=== PATIENT | female | born 1980 | race African-American/Black ===

== ENCOUNTER 2016-12-19 18:50 | Emergency (ER) | payer OTHER ==
[~2016-12-19] VITALS: Ht 157.5 cm; Wt 58.5 kg
--- NOTE | 2016-12-19 20:16 | RADIOLOGY REPORT ---
EXAMINATION: Right fourth finger. CLINICAL INFORMATION: [place]-neck deformity of the finger. COMPARISON: None TECHNIQUE: Three views of the right fourth finger. FINDINGS: DIP joint is hyperflexed. No fracture dislocation. No focal bone lesion. IMPRESSION: Hyperflexed DIP joint of the ring finger. No fracture or dislocation.
--- NOTE | 2016-12-19 20:55 | ED HAND/WRIST INJURY COMPLAINT ---
History of Present Illness General Chief Complaint: Hand or Wrist Injury Stated Complaint: LAC TO RIGHT RING FINGER Source: patient Exam Limitations: no limitations Vital Signs & Intake/Output Vital Signs & Intake/Output Vital Signs Date Time Temp Pulse Resp B/P Pulse O2 O2 Flow FiO2 Ox Delivery Rate 12/19 2126 95.6 68 18 110/68 97 Room Air 12/19 2109 97 Room Air 12/19 1907 99.9 82 18 113/71 98 Room Air Allergies Coded Allergies: NO KNOWN ALLERGIES (01/07/12) Reconcile Medications Ibuprofen 800 MG TABLET 1 TAB PO Q8 PRN PAIN Tramadol HCl 50 MG TABLET 1 TAB PO Q6 PRN pain Triage Note: PT STATES THAT SHE WAS REMOVING A MIRROR OFF THE WALL WHEN IT FELL AND HIT HER FINGER , PT STATES THAT SHE IS UNABLE TO STRAIGHTEN HER FINGER OUT Triage Nurses Notes Reviewed? yes : No Patient currently breastfeeds: No HPI: Patient is a 36-year-old female presents complaining of laceration to her right ring finger and difficulty moving the distal phalanx of her right ring finger. Patient reports she was moving a large mirror when the mirror came down and struck the dorsal surface of her finger. Injury occurred a couple of hours ago. Pain is mild at rest, worsens with movement and palpation. Patient is right- hand dominant. Patient denies numbness. Last tetanus shot was in 2014 (CORBIN MCLEAN) Past History Travel History Traveled to [place] past 21 day No Medical History Any Pertinent Medical History? 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 No (CORBIN MCLEAN) Review of Systems Review of Systems Constitutional: Reports: no symptoms. Musculoskeletal: Reports: see HPI. Skin: Reports: see HPI. Neurological/Psychological: Denies: numbness, paresthesia. Hematologic/Endocrine: Reports: bleeding (FROM WOUND). Immunologic/Allergic: Denies: splenectomy. (CORBIN MCLEAN) Physical Exam Physical Exam General Appearance: well developed/nourished, alert, awake Head: atraumatic, normal appearance Eyes: Bilateral: normal appearance. Neck: normal inspection, full range of motion Cardiovascular/Respiratory: no respiratory distress Back: normal inspection, normal range of motion Hand Left: normal inspection, normal range of motion Hand Right: 2.5 cm crescent-shaped flap laceration over the PIP joint, dorsal surface of the right ring finger. Right ring finger distal phalanx in slight extension at rest. Patient with difficulty flexing the distal phalanx. When the DIP is isolated patient was able to fully flex the distal phalanx Neurologic/Tendon: tendon function deficit Skin: warm/dry (CORBIN MCLEAN) Progress Differential Diagnosis: fracture, sprain, TENDON LACERATION, FOREIGN BODY Plan of Care: Current Medications Sig/Terrell Start time Last Medication Dose Stop Time Status Admin Lidocaine 20 ML ONCE ONE 12/19 2099 UNVr (Lidocaine 1%) 12/19 2100 Discussed results of x-ray with patient. Clinically patient has a partial tendon laceration of the flexor tendon. Discussed the importance of hand surgeon follow-up. Wound sutured. Patient placed in finger splint with slight flexion of the DIP by nurse. (CORBIN MCLEAN) Departure Departure Time of Disposition: 2120 Disposition: HOME OR SELF CARE Condition: Stable Clinical Impression Primary Impression: Finger laceration involving tendon Qualifiers: Encounter type: initial encounter Qualified Codes: S61.219A - Laceration without foreign body of unspecified finger without damage to nail, initial encounter; S61.209A - Unspecified open wound of unspecified finger without damage to nail, initial encounter Referrals: PATIENT HAS NO PRIMARY CARE DR (PCP/Family) ROBERT HANNA,FRANK Nair Additional Instructions: Wear the splint with the end of your finger slightly flexed. Follow-up with Dr. Waters(hand surgeon) within 1 week for further evaluation. Call in the morning for appointment. Return to the emergency department if pus from the wound, redness spreading from the wound, fevers, or worsening of symptoms. Departure Forms: Customer Survey General Discharge Information Prescriptions: Current Visit Scripts Ibuprofen 1 TAB PO Q8 PRN PAIN #20 TAB Tramadol HCl 1 TAB PO Q6 PRN pain #15 TAB (CORBIN MCLEAN) PA/PARALEGAL SUPERVISOR Co-Sign Statement Statement: ED Attending supervision documentation- [] I saw and evaluated the patient. I have also reviewed all the pertinent lab results and diagnostic results. I agree with the findings and the plan of care as documented in the PA's/PARALEGAL SUPERVISOR's documentation. [X] I have reviewed the ED Record and agree with the PA's/PARALEGAL SUPERVISOR's documentation. [] Additions or exceptions (if any) to the PAs/PARALEGAL SUPERVISOR's note and plan are summarized below: [] (TATO HANNA,GINO Yanez) Procedures Laceration/Wound Repair Laceration/Wound Repair: Wound Location: right ring finger Wound Length (cm): 2.5 Wound Explored: clean Irrigated w/ Saline (ccs): 400 Betadine Prep? Yes Anesthesia: 1% lidocaine Volume Anesthetic (ccs): 4 Wound Repaired With: sutures Suture Size/Type: 5:0, nylon Number of Sutures: 5 Splint Applied? Yes By Who? by nurse Type of Splint Applied: finger splint with DIP in slight flexion (BROOKE LAST,CORBIN)
[2016-12-19] MEDS ORDERED: IBUPROFEN800 M1 PO (21:22)
[2016-12-19] MEDS ORDERED: TRAMADOL HCL50 M1 PO (21:22)
[2016-12-19 21:27] VITALS: BP 110/68
== END 2016-12-19 21:28 ==
LOC: ERH 18:50
DX: S61.214A Laceration without foreign body of right ring finger without damage to nail, initial encounter (principal); S56.123A Laceration of flexor muscle, fascia and tendon of right middle finger at forearm level, initial encounter; W25.XXXA Contact with sharp glass, initial encounter
CPT/HCPCS: 73140-RT

== ENCOUNTER 2016-12-29 12:01 | Emergency (ER) | payer OTHER ==
[~2016-12-29] VITALS: Ht 157.5 cm; Wt 58.1 kg
[~2016-12-29 12:01] MED LIST: IBUPROFEN800 M1 PO; TRAMADOL HCL50 M1 PO
[2016-12-29 12:04] VITALS: BP 107/74
--- NOTE | 2016-12-29 12:22 | ED HAND/WRIST INJURY COMPLAINT ---
History of Present Illness General Chief Complaint: Suture Removal/Wound Recheck Stated Complaint: REMOVAL OF SUTURES RIGHT HAND RING FINGER Source: patient Exam Limitations: no limitations Vital Signs & Intake/Output Vital Signs & Intake/Output Vital Signs Date Time Temp Pulse Resp B/P Pulse O2 O2 Flow FiO2 Ox Delivery Rate 12/29 1204 99.1 74 20 107/74 97 Room Air ED Intake and Output 12/30 0000 12/29 1200 Intake Total Output Total Balance Patient 128 lb Weight Allergies Coded Allergies: NO KNOWN ALLERGIES (01/07/12) Reconcile Medications Ibuprofen 800 MG TABLET 1 TAB PO Q8 PRN PAIN Tramadol HCl 50 MG TABLET 1 TAB PO Q6 PRN pain Triage Note: HERE FOR SUTURE REMOVAL RIGHT RING FINGER Triage Nurses Notes Reviewed? yes Occurred: 12/19/16 Duration: day(s): (10) Injury Environment: home Severity: moderate Severity Numbers: 5 Pain/Injury Location: Right: 4th finger. Context: laceration Method of Injury: direct blow Modifying Factors: Worsens With: movement. : No Patient currently breastfeeds: No HPI: BRANDAN IS A 36 YO F W/ NO SIGNIFICANT PAST MEDICAL HISTORY PRESENTING TO ED FOR WOUND ASSESSMENT. PATIENT STATES SHE DROPPED A BATHROOM FIXTURE ONTO HER HAND IN THE PROCESS OF REPLACING IT. PT SUSTAINED LACERATION AND WAS SEEN HERE. LACERATION WAS REPAIRED AND THERE WAS CONCERN FOR TENDON LACERATION. PATIENT WAS REFERRED TO DR. JONES, HAND SURGEON (TO F/U IN 1 WK) BUT SHE STATES SHE JUST GOT A NEW JOB AND HAD JOB ORIENTATION, WHICH SHE WAS UNABLE TO MISS. PT HAS SCHEDULED APPT ON TUESDAY 01/02 IN AM. PT DENIES FEVER, CHILLS, WRIST PAIN, PAIN W/ PASSIVE FLEXSION OF FINGER. PT IS ABLE TO MAKE A FIST, BUT IS UNABLE TO FLEX HER DIP. PT IS CONCERNED ABOUT THE DEFORMITY OF DIP. (ELIZABETH HANNA,DELORIS) Past History Travel History Traveled to [place] past 21 day No Medical History Any Pertinent Medical History? 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 No (DELORIS JOHNSON MD) Review of Systems Review of Systems Constitutional: Reports: no symptoms. EENTM: Reports: no symptoms. Respiratory: Reports: no symptoms. Cardiovascular: Reports: no symptoms. GI: Reports: no symptoms. Genitourinary: Reports: no symptoms. Musculoskeletal: Reports: no symptoms, see HPI (ABNORMAL R RING FINGER MVMT). Skin: Reports: change in skin color (ABNORMAL LACERATION HEALING). Neurological/Psychological: Reports: no symptoms. Hematologic/Endocrine: Reports: no symptoms. Immunologic/Allergic: Reports: no symptoms. All Other Systems: Reviewed and Negative (DELORIS JOHNSON MD) Physical Exam Physical Exam General Appearance: well developed/nourished, no apparent distress, alert Head: atraumatic, normal appearance Eyes: Bilateral: normal appearance, PERRL, EOMI. Neck: normal inspection, supple, full range of motion Cardiovascular/Respiratory: normal breath sounds, normal peripheral pulses, regular rate/rhythm, no respiratory distress Back: normal range of motion Hand Left: normal inspection, normal range of motion Hand Right: deformity, lacerations, limited range of motion, evidence of injury, 4th finger Neurologic/Tendon: normal sensation, normal motor functions Skin: intact, normal color, warm/dry, HEALING LACERATION TO DORSAL R RING FINGER , ECCHYMOSIS TO VENTRAL R RING FINGER (DELORIS JOHNSON MD) Progress Differential Diagnosis: abscess, cellulitis, fracture Plan of Care: PATIENT IS WELL-APPEARING 36 YO F. RETURNING FOR SUTURE AND WOUND ASSESSMENT. PATIENT HAS NOT SEEN HAND SURGEON YET GIVEN RECENT JOB AND WAS UNABLE TO MISS HER ORIENTATION. 5 SUTURES REMOVED. NO OBVIOUS SIGNS OF INFECTION. FINGER ROM WITHOUT PAIN IN PASSIVE MOVEMENT. SOME MILD ABILITY TO FLEX DIP W/ PIP HELD IN PLACE, OTHERWISE, DIP IS DEFORMED IN EXTENSION WHILE PIP IN FLEXSION. CLEARLY, PATIENT HAS TENDON INJURY (WHICH WAS DIAGNOSED PREVIOUSLY). PLACED IN STATIC FINGER SPLINT AND TAPED. PATIENT GIVEN AN ADDITIONAL SPLINT AND WILL F/U W/ HAND SURGEON ON SUNDAY FOR FURTHER EVAL AND TENDON REPAIR. (DELORIS JOHNSON MD) Departure Departure Time of Disposition: 1302 Disposition: HOME OR SELF CARE Condition: Stable Clinical Impression Primary Impression: Encounter for removal of sutures Secondary Impressions: Laceration of finger with tendon involvement Qualifiers: Encounter type: subsequent encounter Qualified Codes: S61.219D - Laceration without foreign body of unspecified finger without damage to nail, subsequent encounter; S61.209D - Unspecified open wound of unspecified finger without damage to nail, subsequent encounter Referrals: PATIENT HAS NO PRIMARY CARE DR (PCP/Family) Additional Instructions: MAKE SURE YOU SEE THE HAND SURGEON ON SUNDAY. IF YOU DO NOT, YOUR FINGER COULD BE DEFORMED PERMANENTLY. IF YOU DEVELOP FEVER, CHILLS, WORSENING PAIN, OR ANY OTHER CONCERNING SYMPTOMS, PLEASE RETURN TO THE EMERGENCY DEPARTMENT. WEAR THE FINGER SPLINT AT ALL TIMES TO MINIMIZE THE DEFORMITY. Departure Forms: Customer Survey General Discharge Information (ELIZABETH HANNA,DELORIS) Resident Co-Sign Statement Statement: ED Attending supervision documentation- [X] I saw and evaluated the patient. I have also reviewed all the pertinent lab results and diagnostic results. I agree with the findings and the plan of care as documented in the Resident's documentation. [X] I have reviewed the ED Record and agree with the Resident's documentation. [] Additions or exceptions (if any) to the Resident's note and plan are summarized below: [] (KAMERON HANNA,BLAS)
== END 2016-12-29 13:23 ==
LOC: ERH 12:01
DX: S61.214D Laceration without foreign body of right ring finger without damage to nail, subsequent encounter (principal)
CPT/HCPCS: 99281

== ENCOUNTER 2017-02-05 14:12 | Emergency (ER) | payer OTHER ==
[~2017-02-05] VITALS: Ht 157.5 cm; Wt 58.5 kg
[2017-02-05 14:15] VITALS: BP 125/80
--- NOTE | 2017-02-05 15:02 | ED INFLUENZA/URI COMPLAINT ---
History of Present Illness General Chief Complaint: General Adult Stated Complaint: "I THINK I HAVE THE FLU" Source: patient, old records Exam Limitations: no limitations Vital Signs & Intake/Output Vital Signs & Intake/Output Vital Signs Date Time Temp Pulse Resp B/P Pulse O2 O2 Flow FiO2 Ox Delivery Rate 02/05 1517 101.0 02/05 1454 97 02/05 1415 101.0 102 20 125/80 99 Room Air Allergies Coded Allergies: No Known Allergies (02/05/17) Reconcile Medications Ibuprofen 800 MG TABLET 1 TAB PO Q8 PRN PAIN Oseltamivir Phosphate (Tamiflu) 75 MG CAPSULE 1 CAP PO BID INFLUENZA Tramadol HCl 50 MG TABLET 1 TAB PO Q6 PRN pain Triage Note: TRIAGE: PT TO ER C/C "I THINK I HAVE THE FLU". S/S OF FEVER, HEAD AND GENERALIZED BODY ACHES. STATES "I FEEL DRY", "I HAVEN'T EATEN ANYTHING ALL DAY". +DRY COUGH, +SLIGHT SORE THROAT. Triage Nurses Notes Reviewed? yes Onset: Abrupt Duration: day(s): (2), constant Timing: recent history Severity: moderate Severity Numbers: 5 Prior Episodes/Possible Cause: no prior episodes No Modifying Factors: none Associated Symptoms: cough, nasal congestion, nasal drainage : No Patient currently breastfeeds: No HPI: 36-year-old female no medical history presents emergency room complaining of feve chills, congestion rhinorrhea and nonproductive cough since yesterday. She works at a [employer] around multiple sick contacts. She took Tylenol yesterday but has not taken anything today. She denies any abdominal pain nausea vomiting diarrhea. No shortness of breath no chest pain. No modifying factors or associated symptoms. Past History Travel History Traveled to [place] past 21 day No Medical History Any Pertinent Medical History? 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 No Review of Systems Review of Systems Constitutional: Reports: see HPI. All Other Systems: Reviewed and Negative Comments Review of systems: See HPI, All other systems negative. Constitutional, chills fever, no malaise HEENT: no sore throat congestion Cardiovascular: No chest pain , no palpitation Skin,no rashes, no change in skin Respiratory: No dyspnea cough no sputum no hemoptysis GI: No nausea no vomiting, no diarrhea, no bloating/constipation : No dysuria Muscle skeletal: No joint pain, no back pain, no neck pain, Neurologic: No numbness no headache Psych: No stress Heme/endocrine: No bruising no bleeding Immunology: No lymphadenopathy Physical Exam Physical Exam General Appearance: well developed/nourished, no apparent distress, alert Ears, Nose, Throat: normal ENT inspection, moist mucous membrane, nasal congestion Comments: Well-developed well-nourished patient in no apparent distress. Head/Face: Atraumatic, no maxillary/frontal sinus tenderness, no facial swelling Eyes: PERRL, EOMI, no conjunctival injection. No nystagmus Ear:External auditory canal and Tympanic membranes clear, no erythema, no FB. Nose: atraumatic.Normal inspection Throat: Moist mucous membranes.Pharynx normal. No pharyngeal erythema/exudate seen. No stridor/drooling or assymetry. No swelling or edema. Neck: Supple, no lymphadenopathy, FROM Back: FROM, Nontender Cardiovascular: Regular rate and rhythms no murmurs Respiratory: No respiratory distress. Patient speaking in full complete sentences. Breath sounds clear to auscultation bilaterally: NO W/R/R Extremities: full range of motion Neuro: Alert and oriented x3 Skin: Warm & dry;No appreciable rash on exposed skin Psych: Mood affect normal, normal memory normal judgment. Core Measures Severe Sepsis Present: No Septic Shock Present: No Progress Differential Diagnosis: influenza, pneumonia, pharyngitis, sinusitis Plan of Care: Orders Procedure Date/time Status VIRAL CULTURE 02/05 1420 Active RAPID VIRAL INFLUENZA A 02/05 1418 Complete Laboratory Tests 02/05/17 1420: Virus Culture Pending Microbiology 02/05 1420 NASOPHARYN: Influenza Virus A & B Rapid Smear - COMP INFLUENZA TYPE B I discussed with the patient at length all of their results. I had an extensive conversation regarding need for close follow up with their primary care physician this week as well as return precautions. I answered all of their questions, they feel comfortable with the plan and follow-up care. I discussed the medications that they will receive with the patient. I gave them signs and symptoms that could indicate an adverse reaction. I have advised them to limit their activities until they can see how they respond to the medication. (ELIZABETH LAST,FRANCESCA) Initial ED EKG: none Departure Departure Time of Disposition: 1505 Disposition: HOME OR SELF CARE Condition: Stable Clinical Impression Primary Impression: Influenza Referrals: PATIENT HAS NO PRIMARY CARE DR (PCP/Family) Additional Instructions: TAMIFLU DIRECTED, TYLENOL OR MOTRIN EVERY 4-6 HOURS, DRINK PLENTY OF FLUIDS. THIS WAS SENT TO YOUR [facility] IN [place] Departure Forms: Customer Survey General Discharge Information Prescriptions: Current Visit Scripts Oseltamivir Phosphate (Tamiflu) 1 CAP PO BID #10 CAP Additional Instructions: TAMIFLU DIRECTED, TYLENOL OR MOTRIN EVERY 4-6 HOURS, DRINK PLENTY OF FLUIDS. THIS WAS SENT TO YOUR [facility] IN [place] Departure Forms: Customer Survey General Discharge Information Prescriptions: Current Visit Scripts Oseltamivir Phosphate (Tamiflu) 1 CAP PO BID #10 CAP
[2017-02-05] MEDS ORDERED: TAMIFLU75 M1 PO (15:07)
== END 2017-02-05 15:10 ==
LOC: ERH 14:12
DX: J11.1 Influenza due to unidentified influenza virus with other respiratory manifestations (principal)
CPT/HCPCS: 87804; 87804-59

== ENCOUNTER 2017-02-07 14:08 | Emergency (ER) | payer OTHER ==
[~2017-02-07] VITALS: Ht 157.5 cm; Wt 57.6 kg
[~2017-02-07 14:08] MED LIST changes: +TAMIFLU75 M1 PO
[2017-02-07 14:22] VITALS: BP 110/80
--- NOTE | 2017-02-07 16:44 | ED GENERAL ADULT ---
History of Present Illness General Chief Complaint: General Adult Stated Complaint: DX WITH THE FLU ON SUNDAY/WEAKNESS Source: patient, old records Exam Limitations: no limitations Vital Signs & Intake/Output Vital Signs & Intake/Output Vital Signs Date Time Temp Pulse Resp B/P Pulse O2 O2 Flow FiO2 Ox Delivery Rate 02/07 1422 98.1 81 18 110/80 99 Room Air Allergies Coded Allergies: No Known Allergies (02/05/17) Reconcile Medications Ibuprofen 800 MG TABLET 1 TAB PO Q8 PRN PAIN Ibuprofen 800 MG TABLET 1 TAB PO TID PRN BODY ACHES Ondansetron (Zofran Odt) 4 MG TAB.RAPDIS 1 TAB SL TID PRN NAUSEA Oseltamivir Phosphate (Tamiflu) 75 MG CAPSULE 1 CAP PO BID INFLUENZA Tramadol HCl 50 MG TABLET 1 TAB PO Q6 PRN pain Triage Note: 36 Y/O FEMALE C/O WEAKNESS AND N/V SINCE SUNDAY. WAS DIAGNOSED WITH INFLUENZA SUNDAY AND HAS BEEN TAKING TAMIFLU WITH NO RELIEF. STATES SHE IS UNABLE TO TOLERATE PO INTAKE. AFEBRILE. Triage Nurses Notes Reviewed? yes Onset: Gradual Duration: day(s): (3) Timing: recent history Injury Environment: home Severity: moderate Severity Numbers: 7 No Modifying Factors: none : No Patient currently breastfeeds: No HPI: Patient is a 36-year-old female presenting to the emergency department to complaint of generalized malaise since Sunday. She was seen here and evaluated and diagnosed with influenza. She reports that she has been unable to take her Tamiflu because of nausea. Denies any diarrhea. No abdominal pain. She does report that she is so nauseous that she has been unable to tolerate anything by mouth.. Denies any urinary frequency or urgency or dysuria. Her son was also diagnosed with the flu. No recent antibiotics. (DEZ BATISTA) Past History Travel History Traveled to [place] past 21 day No Medical History Any Pertinent Medical History? 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 No (DEZ BATISTA) Review of Systems Review of Systems Constitutional: Reports: fever, malaise. Comments Review of systems: See HPI, All other systems negative. Constitutional, no weight loss HEENT: No visual changes no sore throat no congestion Cardiovascular: No chest pain ,palpitation , orthopnea or ankle swelling Skin, no jaundice no rashes Respiratory: No dyspnea sputum or hemoptysis GI: No DIARRHEA : No dysuria No hematuria Muscle skeletal: no back pain, no neck pain, Neurologic: No numbness no confusion Psych: No stress anxiety or depression,. Heme/endocrine: No bruising no bleeding no polyuria or polydipsia Immunology: No splenectomy or history of AIDS (DEZ BATISTA) Physical Exam Physical Exam General Appearance: well developed/nourished, no apparent distress, alert, awake , anxious Comments: Well-developed well-nourished person in no acute distress HEENT: Pupils equally round and reactive to light and accommodation. Nose is atraumatic. External auditory canal and Tympanic membranes clear. Pharynx normal. No swelling or edema. Neck: Supple, no lymphadenopathy, normal range of motion without pain or tenderness Back: Nontender Cardiovascular: Regular rate and rhythms no murmurs rubs or gallops, normal JVP Respiratory: Chest nontender. No respiratory distress.breath sounds clear to auscultation bilaterally Neuro: Alert oriented x3 Skin: No appreciable rash on exposed skin, skin is warm and dry. Psych: Mood and affect is normal, memory and judgment is normal. Core Measures ACS in differential dx? No CVA/TIA Diagnosis: No Severe Sepsis Present: No Septic Shock Present: No (DEZ BATISTA) Progress Differential Diagnoses I considered the following diagnoses in my evaluation of the patient: Dehydration electrolyte abnormality, influenza, viral syndrome Plan of Care: Current Medications Sig/Terrell Start time Last Medication Dose Stop Time Status Admin Ketorolac 60 MG ONCE ONE 02/07 1645 AC Tromethamine 02/07 1646 (Toradol) Ondansetron HCl 4 MG ONCE ONE 02/07 1645 AC (Zofran) 02/07 1646 Initial ED EKG: none (DEZ BATISTA) Departure Departure Time of Disposition: 1649 Disposition: HOME OR SELF CARE Condition: Stable Clinical Impression Primary Impression: Influenza Referrals: [facility] PATIENT HAS NO PRIMARY CARE DR (PCP/Family) Additional Instructions: Follow-up with [facility] call to make an appointment. Increase fluids. Zofran is prescribed for nausea. Take ibuprofen as prescribed for body aches. Clear liquid diet for the next 24 hours. Return for worsening symptoms or concerns. Departure Forms: Customer Survey D/C INS-APPENDICITIS EXCLUSION General Discharge Information Prescriptions: Current Visit Scripts Ondansetron (Zofran Odt) 1 TAB SL TID PRN NAUSEA #15 TAB Ibuprofen 1 TAB PO TID PRN BODY ACHES #20 TAB (DEZ BATISTA) PA/MANAGER BUSINESS INFORMATION Co-Sign Statement Statement: ED Attending supervision documentation- [] I saw and evaluated the patient. I have also reviewed all the pertinent lab results and diagnostic results. I agree with the findings and the plan of care as documented in the PA's/MANAGER BUSINESS INFORMATION's documentation. [X] I have reviewed the ED Record and agree with the PA's/MANAGER BUSINESS INFORMATION's documentation. [] Additions or exceptions (if any) to the PAs/MANAGER BUSINESS INFORMATION's note and plan are summarized below: [] (TATO HANNA,GINO Yanez) Critical Care Note Critical Care Note Critical Care Time: non-applicable (DEZ BATISTA)
[2017-02-07] MEDS ORDERED: ZOFRAN ODT4 M1 SL (16:54)
[2017-02-07] MEDS ORDERED: IBUPROFEN800 M1 PO (16:54)
== END 2017-02-07 17:06 ==
LOC: ERH 14:08
DX: J10.1 Influenza due to other identified influenza virus with other respiratory manifestations (principal)
CPT/HCPCS: 96372; J1885; J3101